=== PATIENT | female | born 1970 | race Caucasian/White ===

== ENCOUNTER 2016-11-25 14:03 | Emergency (ER) | payer BC ==
[~2016-11-25] VITALS: Ht 170.2 cm; Wt 56.8 kg
[~2016-11-25 14:03] MED LIST: ALL220TA PO; BUPR-197 PO; CALTTAB2 PO; CITA20TA4 PO; DIPH1TAB36 PO; DIPH25 PO; FISH100020 PO; METO50CR PO; MINO100 PO; RED600TA PO; TAB-TAB PO; TEMA30CA PO; VALA500 PO; VITA100017 PO
[2016-11-25 14:23] VITALS: BP 121/78; PULSE 88; RESP 16; TEMP 98.9; O2SAT 100
[2016-11-25] MEDS ORDERED: TEMA30CA PO (14:39)
[2016-11-25] MEDS ORDERED: WELLTAB39 PO (14:39)
[2016-11-25] MEDS ORDERED: MINO1CAP PO (14:39)
[2016-11-25] MEDS ORDERED: MOBI7.5T PO (14:39)
[2016-11-25] MEDS ORDERED: VALT500T PO (14:39)
[2016-11-25] MEDS ORDERED: IMIT50TA PO (14:39)
[2016-11-25] MEDS ORDERED: SODIUM CHLOR 0.9% 1000 ML INJ 1,000 ML IV ONE (14:44)
[2016-11-25] MEDS ORDERED: SODIUM CHLORIDE 0.9% FLUSH 5 ML FLUSH IVF PRN (14:45)
[2016-11-25] MEDS ORDERED: DEXAMETHASONE SOD PHOS 20 MG/5 ML VIAL IV PUSH ONE (14:45)
[2016-11-25] MEDS ORDERED: diphenhydrAMINE HCL 50 MG/ML VIAL IVP ONE (14:45)
[2016-11-25] MEDS ORDERED: METOCLOPRAMIDE HCL 10 MG/2 ML VIAL IVP ONE (14:45)
[2016-11-25 15:19] LABS: AUTOMATED NEUTROPHIL # 7.9 TH/MM3 (1.8-7.7); BASOPHIL % 0.4 % (0.0-2.0); EOSINOPHIL # 0.1 TH/MM3 (0-0.4); EOSINOPHIL % 0.7 % (0.0-4.0); HEMATOCRIT 43.1 % (35.0-46.0); LYMPHOCYTE # 1.4 TH/MM3 (1.0-4.8); MEAN CORPUSCULAR HEMOGLOBIN 28.8 PG (27.0-34.0); MEAN CORPUSCULAR HGB CONC 33.1 % (32.0-36.0); MONO % 5.5 % (0.0-8.0); NEUT % 79.4 % (16.0-70.0); PLATELET COUNT 249 TH/MM3 (150-450); RED BLOOD COUNT 4.96 MIL/MM3 (4.00-5.30); RED CELL DISTRIBUTION WIDTH 12.4 % (11.6-17.2)
[2016-11-25 15:21] LABS: HEMO FLAGS DIFF FINAL
[2016-11-25 15:28] LABS: CHLORIDE 101 MEQ/L (98-107); POTASSIUM 4.1 MEQ/L (3.5-5.1); SODIUM (NA) 139 MEQ/L (136-145)
--- NOTE | 2016-11-25 15:29 | RADHPO ---
EXAM DATE/TIME: 11/25/2016 14:58 [facility] COMPARISON: No previous studies available for comparison. INDICATIONS : Cephalgia for two days. RADIATION DOSE: 62.08 CTDIvol (mGy) MEDICAL HISTORY : cervical cancer SURGICAL HISTORY : Hysterectomy. ENCOUNTER: Initial ACUITY: 2 days PAIN SCALE: 10/10 LOCATION: Bilateral head TECHNIQUE: Multiple contiguous axial images were obtained of the head. Using automated exposure control and adj ustment of the mA and/or kV according to patient size, radiation dose was kept as low as reasonably a chievable to obtain optimal diagnostic quality images. FINDINGS: CEREBRUM: The ventricles are normal for age. No evidence of midline shift, mass lesion, hemorrhage or acute in farction. No extra-axial fluid collections are seen. POSTERIOR FOSSA: The cerebellum and brainstem are intact. The 4th ventricle is midline. The cerebellopontine angle i s unremarkable. EXTRACRANIAL: The visualized portion of the orbits is intact. SKULL: The calvaria is intact. No evidence of skull fracture. CONCLUSION: Negative noncontrast CT brain. Armando Shaw MD on November 25, 2016 at 15:27 Board Certified Radiologist. This report was verified electronically.
[2016-11-25 15:31] LABS: ANION GAP 7 MEQ/L (5-15); BICARBONATE 31.2 MEQ/L (21.0-32.0)
--- NOTE | 2016-11-25 15:31 | PD ---
HPI Chief Complaint: Headache Time Seen by Provider: 14:40 Travel History International Travel<30 days: No Contact w/Intl Traveler<30days: No Traveled to known affect area: No History of Present Illness HPI Patient is a 46-year-old female with history of migraines, presents to ER with c /o of typical migraine headache. Patient reports that she began to have an aura yesterday, reports that she took Imitrex yesterday as well as today, reports that imitrex has not helped her with her symptoms. Reports that her migraine is located to the right side of her head and goes from the front of her head and radiates to the back. Patient reports that she is having photophobia with her symptoms. She reports a pressure behind her eyes with her symptoms. Patient reports that symptoms feel similar to past when she has had migraine headaches. She reports that when her symptoms are bad, her pain management doctor performs injections to her occipital nerves which relieves her symptoms. Patient with no fevers or chills at this time. Patient with no neck pain or meningismus signs. She reports that she does feel nauseous and did vomit once. Patient with no abdominal pain at this time. Patient with no other complaints. PFSH Past Medical History Heart Rhythm Problems: Yes Cancer: Yes (CERVIX ) Cardiovascular Problems: Yes (tachy) Diabetes: No Endocrine: No Genitourinary: No Hepatitis: No Hiatal Hernia: No Hypertension: Yes Immune Disorder: No Musculoskeletal: Yes (NECK/ SHOULDER PAIN) Neurologic: Yes (MIGRANES) Psychiatric: No Reproductive: No Respiratory: No Thyroid Disease: No Influenza Vaccination: Yes ?: Not Past Surgical History Abdominal Surgery: Yes (POLYPS REMOVED FROM COLON) AICD: No Gynecologic Surgery: Yes (HYSTERECTOMY) Hysterectomy: Yes Joint Replacement: No Pacemaker: No Other Surgery: Yes Family History Family Hypercholesterolemia: Yes Social History Alcohol Use: Yes (OCCAS. BEER AND WINE) Tobacco Use: No Substance Use: No Allergies-Medications (Allergen,Severity, Reaction): Coded Allergies: Diltiazem (Verified Allergy, Intermediate, hives, 11/25/16) Reported Meds & Prescriptions Reported Meds & Active Scripts Active Reported Imitrex (Sumatriptan Succinate) 50 Mg Tab 50 Mg PO ONCE PRN If a satisfactory response has not been obtained at 2 hours, a second dose may be administered Minocin (Minocycline HCl) 100 Mg Cap 100 Mg PO DAILY Wellbutrin Xl 24 HR (Bupropion HCl) 300 Mg Tab 300 Mg PO DAILY Temazepam 30 Mg Cap 30 Mg PO HS PRN Mobic (Meloxicam) 7.5 Mg Tab 7.5 Mg PO DAILY Valtrex (Valacyclovir HCl) 500 Mg Tab 500 Mg PO DAILY Review of Systems General / Constitutional: No: Fever Eyes: No: Visual changes HENT: Positive: Headaches Cardiovascular: No: Chest Pain or Discomfort Respiratory: No: Shortness of Breath Gastrointestinal: Positive: Nausea, Vomiting, No: Diarrhea, Abdominal Pain Genitourinary: No: Dysuria Musculoskeletal: No: Pain Skin: No Rash Neurologic: No: Weakness, Dizziness Psychiatric: No: Depression Endocrine: No: Polydipsia Hematologic/Lymphatic: No: Easy Bruising Physical Exam Narrative GENERAL: No acute distress, nontoxic SKIN: Warm and dry. HEAD: Atraumatic. Normocephalic. EYES: Pupils equal and round. No scleral icterus. No injection or drainage. ENT: No nasal bleeding or discharge. Mucous membranes pink and moist. NECK: Trachea midline. No JVD. CARDIOVASCULAR: Regular rate and rhythm. No murmur appreciated. RESPIRATORY: No accessory muscle use. Clear to auscultation. Breath sounds equal bilaterally. GASTROINTESTINAL: Abdomen soft, non-tender, nondistended. Hepatic and splenic margins not palpable. MUSCULOSKELETAL: No obvious deformities. No clubbing. No cyanosis. No edema. NEUROLOGICAL: Awake and alert. No obvious cranial nerve deficits. Motor grossly within normal limits. Normal speech. Cranial nerves II-12 grossly intact with no obvious cranial nerve deficits PSYCHIATRIC: Appropriate mood and affect; insight and judgment normal. Data Data Last Documented VS Vital Signs Date Time Temp Pulse Resp B/P Pulse Ox O2 Delivery O2 Flow Rate FiO2 11/25/16 14:34 Room Air 11/25/16 14:23 98.9 88 16 121/78 100 Orders Complete Blood Count With Diff (11/25/16 14:44) Comprehensive Metabolic Panel (11/25/16 14:44) Ct Brain W/O Iv Contrast(Rout) (11/25/16 14:44) Sodium Chloride 0.9% Flush (Ns Flush) (11/25/16 14:45) Diphenhydramine Inj (Benadryl Inj) (11/25/16 14:45) Metoclopramide Inj (Reglan Inj) (11/25/16 14:45) Sodium Chlor 0.9% 1000 Ml Inj (Ns 1000 M (11/25/16 14:44) Dexamethasone Inj (Decadron Inj) (11/25/16 14:45) Labs Laboratory Tests Test 11/25/16 15:12 White Blood Count 10.0 TH/MM3 Red Blood Count 4.96 MIL/MM3 Hemoglobin 14.3 GM/DL Hematocrit 43.1 % Mean Corpuscular Volume 87.0 FL Mean Corpuscular Hemoglobin 28.8 PG Mean Corpuscular Hemoglobin 33.1 % Concent Red Cell Distribution Width 12.4 % Platelet Count 249 TH/MM3 Mean Platelet Volume 7.6 FL Neutrophils (%) (Auto) 79.4 % Lymphocytes (%) (Auto) 14.0 % Monocytes (%) (Auto) 5.5 % Eosinophils (%) (Auto) 0.7 % Basophils (%) (Auto) 0.4 % Neutrophils # (Auto) 7.9 TH/MM3 Lymphocytes # (Auto) 1.4 TH/MM3 Monocytes # (Auto) 0.6 TH/MM3 Eosinophils # (Auto) 0.1 TH/MM3 Basophils # (Auto) 0.0 TH/MM3 CBC Comment DIFF FINAL Differential Comment Sodium Level 139 MEQ/L Potassium Level 4.1 MEQ/L Chloride Level 101 MEQ/L Carbon Dioxide Level 31.2 MEQ/L Anion Gap 7 MEQ/L Blood Urea Nitrogen 16 MG/DL Creatinine 0.82 MG/DL Estimat Glomerular Filtration 76 ML/MIN Rate Random Glucose 100 MG/DL Calcium Level 9.0 MG/DL Total Bilirubin 0.4 MG/DL Aspartate Amino Transf 15 U/L (AST/SGOT) Alanine Aminotransferase 29 U/L (ALT/SGPT) Alkaline Phosphatase 48 U/L Total Protein 7.1 GM/DL Albumin 3.9 GM/DL MDM Medical Decision Making Medical Screen Exam Complete: Yes Emergency Medical Condition: Yes Interpretation(s) Vital Signs Date Time Temp Pulse Resp B/P Pulse Ox O2 Delivery O2 Flow Rate FiO2 11/25/16 14:34 Room Air 11/25/16 14:23 98.9 88 16 121/78 100 Vital Signs Date Time Temp Pulse Resp B/P Pulse Ox O2 Delivery O2 Flow Rate FiO2 11/25/16 14:34 Room Air 11/25/16 14:23 98.9 88 16 121/78 100 Differential Diagnosis Cephalgia, migraine headache, electrolyte abnormality, intracranial hemorrhage, dehydration, intracranial mass/tumor Narrative Course Patient is a 46-year-old female who presents to emergency room with complaints of migraine headache. Patient reports history of migraine headaches in the past. Patient reports that she began to have an aura yesterday, reports that she has had increased pain and pressure from the right side of her face to the back of her head. Patient reports increased pressure behind her eye. Patient reports photophobia with symptoms. Patient reports that symptoms feel similar to when she's had migraine headaches in the past. She did take Imitrex yesterday as well as today for relief of symptoms, patient reports no relief of symptoms at this time. Plan to obtain CT of the head, will obtain labs and administer migraine cocktail. Will continue to monitor patient. Vital Signs Date Time Temp Pulse Resp B/P Pulse Ox O2 Delivery O2 Flow Rate FiO2 11/25/16 14:34 Room Air 11/25/16 14:23 98.9 88 16 121/78 100 Laboratory Tests Test 11/25/16 15:12 White Blood Count 10.0 TH/MM3 (4.0-11.0) Red Blood Count 4.96 MIL/MM3 (4.00-5.30) Hemoglobin 14.3 GM/DL (11.6-15.3) Hematocrit 43.1 % (35.0-46.0) Mean Corpuscular Volume 87.0 FL (80.0-100.0) Mean Corpuscular Hemoglobin 28.8 PG (27.0-34.0) Mean Corpuscular Hemoglobin 33.1 % Concent (32.0-36.0) Red Cell Distribution Width 12.4 % (11.6-17.2) Platelet Count 249 TH/MM3 (150-450) Mean Platelet Volume 7.6 FL (7.0-11.0) Neutrophils (%) (Auto) 79.4 % (16.0-70.0) Lymphocytes (%) (Auto) 14.0 % (9.0-44.0) Monocytes (%) (Auto) 5.5 % (0.0-8.0) Eosinophils (%) (Auto) 0.7 % (0.0-4.0) Basophils (%) (Auto) 0.4 % (0.0-2.0) Neutrophils # (Auto) 7.9 TH/MM3 (1.8-7.7) Lymphocytes # (Auto) 1.4 TH/MM3 (1.0-4.8) Monocytes # (Auto) 0.6 TH/MM3 (0-0.9) Eosinophils # (Auto) 0.1 TH/MM3 (0-0.4) Basophils # (Auto) 0.0 TH/MM3 (0-0.2) CBC Comment DIFF FINAL Differential Comment Sodium Level 139 MEQ/L (136-145) Potassium Level 4.1 MEQ/L (3.5-5.1) Chloride Level 101 MEQ/L (98-107) Carbon Dioxide Level 31.2 MEQ/L (21.0-32.0) Anion Gap 7 MEQ/L (5-15) Blood Urea Nitrogen 16 MG/DL (7-18) Creatinine 0.82 MG/DL (0.50-1.00) Estimat Glomerular Filtration 76 ML/MIN (>89) Rate Random Glucose 100 MG/DL (74-106) Calcium Level 9.0 MG/DL (8.5-10.1) Total Bilirubin 0.4 MG/DL (0.2-1.0) Aspartate Amino Transf 15 U/L (15-37) (AST/SGOT) Alanine Aminotransferase 29 U/L (10-53) (ALT/SGPT) Alkaline Phosphatase 48 U/L (45-117) Total Protein 7.1 GM/DL (6.4-8.2) Albumin 3.9 GM/DL (3.4-5.0) Last Impressions Head CT 11/25/16 1444 Signed Impressions: Service Date/Time: Friday, November 25, 2016 14:58 - CONCLUSION: Negative noncontrast CT brain. Armando Shaw MD Patient reevaluated, patient reports that she is feeling much better at this time. Patient reports near resolution of migraine headache. I reviewed all labs and all studies with patient in detail. A copy of her CAT scan radiology report was given to her. Patient will follow-up with a primary care doctor and she will return to ER if symptoms return or worsen. Diagnosis Primary Impression: Cephalgia Qualified Code: R51 - Nonintractable headache, unspecified chronicity pattern , unspecified headache type Patient Instructions: General Instructions Additional Instructions: Please follow-up with your primary care doctor Return to ER as needed Return to ER if symptoms progress or worsen Disposition: 01 DISCHARGE HOME Condition: Stable Tania Melendez DO Nov 25, 2016 15:31
[2016-11-25 15:32] LABS: BLOOD UREA NITROGEN 16 MG/DL (7-18)
[2016-11-25 15:34] LABS: ALT (GPT) 29 U/L (10-53)
[2016-11-25 15:35] LABS: AST (GOT) 15 U/L (15-37); GLOMERULAR FILTRATION RATE 76 ML/MIN (>89)
[2016-11-25 15:36] LABS: TOTAL BILIRUBIN ADULT 0.4 MG/DL (0.2-1.0)
[2016-11-25 15:37] LABS: ALKALINE PHOSPHATASE 48 U/L (45-117)
[2016-11-25 16:55] VITALS: BP 118/72
== END 2016-11-25 16:57 | disposition home or self-care (01) ==
LOC: PHED 14:03
DX: R51 Headache (principal)
CPT/HCPCS: 70450; 80053; 85025; 96361; 96374; 96375; 99284; J1100; J1200; J2765; J7030